=== PATIENT | female | born 1960 | race African-American/Black ===

== ENCOUNTER 2025-10-03 16:21 | Emergency (ER) | payer MEDICAID ==
[~2025-10-03] VITALS: Ht 170.2 cm; Wt 80.0 kg
[2025-10-03 16:30] VITALS: RESP 44; RESP 46
[2025-10-03] MEDS ORDERED: AZITHROMYCIN 500MG/250ML 250 ML IV ONE (16:30)
[2025-10-03] MEDS: CEFTRIAXONE 1GM/50ML 50 ML IV ONE (16:52)
[2025-10-03] MEDS: SODIUM CHLORIDE 0.9% (SEPSIS BOLUS) IV ONE (16:52)
[2025-10-03 16:57] LABS: BG BASE EXCESS -14.7 mmol/L (-2.0-3.0); BG CARBOXYHEMOGLOBIN 0.0 % (0.5-1.5); BG DEOXYHEMOGLOBIN 0.3 % (0.0-5.0); BG FRACTION INSPIRED OXYGEN 100; BG HCO3 ACT 12.2 mmol/L (21.0-28.0); BG METHEMOGLOBIN 0.3 % (0.5-1.5); BG OXYGEN SATURATION 99.7 % (94.0-98.0); BG OXYHEMOGLOBIN 99.4 % (94.0-98.0); BG PCO2 32.1 mmHg (32.0-45.0); BG PH 7.196 (7.350-7.450); BG PO2 363.6 mmHg (83.0-108.0); BG SAMPLE SITE RIGHT RADIAL; BG TOTAL HEMOGLOBIN 9.2 g/dL (12.0-16.0); BG VENT MODE MASK - BIPAP; BG VENT RATE 20.0 set
[2025-10-03 16:58] VITALS: O2SAT 100
[2025-10-03] MEDS: MIDAZOLAM HCL 2 MG/2 ML VIAL IV ONE (16:58)
[2025-10-03 17:05] VITALS: RESP 45
[2025-10-03 17:08] LABS: BASOPHILS % 0.2 % (0.0-2.0); EOSINOPHILS % 0.1 % (0.0-5.0); HEMATOCRIT. 26.6 % (36.0-48.0); HEMOGLOBIN. 8.1 g/dL (12.0-16.0); LYMPHOCYTES % 8.8 % (20.0-50.0); MEAN PLATELET VOLUME 8.6 fl (7.4-10.4); MONOCYTES % 5.7 % (2.0-8.0); NEUTROPHILS % 85.2 % (40.0-76.0); PLATELET 446 x1000/uL (130-400); RED BLOOD CELL COUNT 3.01 mill/uL (4.2-5.4); RED CELL DISTRIBUTION WIDTH 17.3 % (11.6-14.6)
[2025-10-03 17:19] LABS: INR 1.2
[2025-10-03 17:23] LABS: CREATININE 1.5 mg/dL (0.6-1.0); UREA NITROGEN BLOOD 34 mg/dL (9-23)
[2025-10-03 17:25] LABS: ASPARTATE AMINOTRANSFERASE 24 IU/L (<34); BILIRUBIN DIRECT 0.2 mg/dL (<=3.0); BILIRUBIN TOTAL 0.6 mg/dL (0.1-1.0); PROTEIN TOTAL 8.1 g/dL (6.0-8.3)
[2025-10-03 17:29] VITALS: RESP 45
[2025-10-03] MEDS ORDERED: DEXT 5%/0.9% NACL 1,000 ML IV SCH (17:30)
[2025-10-03] MEDS ORDERED: SODIUM PHOSPHATE 15 MMOL in SODIUM CHLORIDE 0.9% 245 ML IV PRN (17:30)
[2025-10-03] MEDS ORDERED: BLOOD SUGAR DIAGNOSTIC STRIP TEST SCH (17:30)
[2025-10-03] MEDS ORDERED: DEXTROSE 50% WATER 50ML SYRINGE IV PRN (17:30)
[2025-10-03] MEDS ORDERED: SODIUM CHLORIDE 0.9% 1,000 ML IV SCH (17:30)
[2025-10-03] MEDS ORDERED: POTASSIUM CHLORIDE 40 MEQ in SODIUM CHLORIDE 0.9% 230 ML IV PRN (17:30)
[2025-10-03] MEDS ORDERED: BLOOD SUGAR DIAGNOSTIC STRIP TEST PRN (17:30)
[2025-10-03] MEDS ORDERED: MAGNESIUM 2 G PREMIX 50 ML IV PRN (17:30)
[2025-10-03] MEDS ORDERED: KCL 20MEQ/100ML PREMIX 100 ML IV PRN (17:30)
[2025-10-03 17:32] VITALS: RESP 34
[2025-10-03 17:41] LABS: TROPONIN I HIGH SENSITIVITY 153 ng/L (3.0-34)
[2025-10-03] MEDS ORDERED: MORPHINE SULFATE/PF 1 MG/ML 100 MG in BAG 1 EACH IV PRN (17:45)
[2025-10-03 17:59] VITALS: BP 0/0; PULSE 0; RESP 0; TEMP 36.7; O2SAT 0
[2025-10-06] MEDS ORDERED: IOHEXOL-350 100 ML BOTTLE ONE (15:51)
== END 2025-10-03 17:59 ==
LOC: ER 16:21 → CANBEDREQ 18:15
DX: I46.9 Cardiac arrest, cause unspecified (principal); E10.10 Type 1 diabetes mellitus with ketoacidosis without coma; J96.01 Acute respiratory failure with hypoxia; I11.0 Hypertensive heart disease with heart failure
CPT/HCPCS: 80076; 80048; 83880; 83605; 83735; 83930; 85025; 85610; 87040; 84484; 36415; 84145; 71045; 71275; 82805; 82375; 93005; 96365; 96375; 99291; 99292; 36600; Q9967; J0696; J2250; J7030; Z7610; J7042